=== PATIENT | male | born 1965 | race Caucasian/White ===

== ENCOUNTER 2021-01-10 01:59 | Outpatient (CLI) | payer OTHER, SELFPAY ==
[2021-01-10 10:17] LABS: Source Nasal/Nares
[2021-01-10 13:33] LABS: COVID-19 PCR Negative (Negative)
== END 2021-01-10 02:00 | disposition home or self-care (01) ==
LOC: LBO 01:59
PROVIDERS: PCP Internal Medicine; Visit Provider Surgery
DX: Z20.822 Contact with and (suspected) exposure to COVID-19 (principal); Z01.818 Encounter for other preprocedural examination
CPT/HCPCS: 87635

== ENCOUNTER 2021-01-13 08:14 | Day surgery (SDC) | payer OTHER, SELFPAY ==
--- NOTE | 2021-01-13 06:35 | COLE_ITS ---
Date of service: 01/13/21 Time of Service: 09:10 Colonoscopy Report Date of procedure: 01/13/21 Pre-op diagnosis general: Colon Cancer Screening and family history Post-op diagnosis procedure note: other (polyps) Procedure: Colonoscopy with polypectomy Surgeon: Molly Poole Anesthesia Type: General:No Airway (ASA 3/ Chay Helm CRNA) Estimated blood loss (mL): 3 Pathology: other (ascending colon and sigmoid colon polyps) Complications: None Disposition: same day Indications: The patient is here for Colonoscopy pre-op. His last screening was in 2009 and was unremarkable. He has a distant family history of colon cancer in his maternal grandmother and maternal aunt. He has not had any bowel habit changes. -Discussed colonoscopy bowel prep as well as the procedure. Discussed possible complications of the procedure to include bleeding, pain, perforation, missed small lesion/polyp, sore throat, aspiration and adverse reaction to the medications. Questions were answered to patient?s satisfaction. No guarantees we re implied or given. Prep: Miralax/Dulcolax Procedure Start Time: :10 Procedure End Time: :32 Retraction Time: 15 minutes Findings: 2 small sessile polyps Procedure Description: After informed consent was obtained the patient was taken to the procedure room and placed in a left decubitous position. Monitors were applied and a time out was done. The patients name, date of , procedure, allergies to medications and metal in their body was reviewed. The patient was then sedated. Once sedated and comfortable a rectal exam was done. External exam was normal. Internal exam revealed a normal sphincter tone and no palpable masses. The prostate felt smooth and normal in size. The scope was then introduced and retro-flexed. No internal hemorrhoids, polyps or masses were identified on retro-flexion. The scope was then advanced to the cecum without difficulty. The ileocecal vlave and appendiceal orifice were identified. The prep was good. The scope was then slowly retracted over 15 m inutes back into the rectum. Polyps were removed with cold forceps in the ascending colon and sigmoid colon. There was no diverticulosis noted. The scope was removed and the patient was woken up and taken back to Same day surgery in stable condition. The patient tolerated the procedure well and there were no immediate complications. Follow up: The patient should follow up in 5 years unless they develop changes in bowel habits or other new gastrointestinal complaints.
--- NOTE | 2021-01-13 06:37 | PDOC.DSDIS_ITS ---
Discharge Plan Disposition Patient Disposition: HOME Condition: Good Discharge Details Reason For Visit: Colon Cancer Screening Attending Provider: Molly Poole Primary Care Provider: Nadiya Zepeda Home Meds and New Rx's Prescriptions: Continued aspirin [Adult Aspirin Regimen] 81 mg tablet,delayed release (DR/EC) 81 mg PO DAILY RF: 0 lisinopril 5 mg tablet 5 mg PO DAILY RF: 0 therapeutic multivitamin Tablet 1 tab PO DAILY RF: 0 omega-3 fatty acids [Super [place]-3] 1,000 mg capsule 1,000 mg PO DAILY RF: 0 Discontinued bisacodyl [Dulcolax (bisacodyl)] 5 mg tablet,delayed release (DR/EC) 5 mg PO ONCE Qty: 4 RF: 0 polyethylene glycol 3350 17 gram/dose powder 238 g PO ONCE Qty: 238 RF: 0 Discharge Instructions Additional Instructions: Findings: polyps Follow up: 5 years most likely Please call if you develop: fevers >101.5 Nausea or Vomiting Abdominal pain that is not transient Rectal bleeding that is more then a tbsp A hard abdomen and inability to pass gas DAY SURGERY UNIT POST ENDOSCOPY INSTRUCTIONS Instructions for everyone who is given Anesthesia: For your safety, please do the following for the next 24 Hours: a. Do not drive or operate dangerous equipment b. Do not drink alcohol beverages or use any recreational drugs for the first 24 hours or while taking pain medications. The medications in your body may have a reaction that can be dangerous. c. Do not make any important decisions or sign any important papers 1. Generally there are no restrictions on your activity after a day or so has gone by, but you may feel a bit fatigued for a few days. 2. After you arrive home you may have a light meal and return to a normal diet as you can tolerate it without feeling sick to your stomach. 3. After surgery, you may feel pain or discomfort. This should be only transient, but if it persists please contact your doctor. 4. If there are any questions regarding the findings of your procedure, please feel free to contact your doctor. 6. If you are unable to contact your doctor with a problem, contact the hospital at [phone]. 7. Continue all your regular medications unless directed otherwise. I understand the above instructions and have no questions. Signature of Patient or Responsible Adult Escort Date/Time Name of Responsible Adult Escort Signature of Nurse Date/Time Activity:: Activity as Tolerated Diet:: As Tolerated Discharge Orders Discharge Orders: Discharge Order (Routine); Ordered 01/13/21 Ordered By: Molly Poole
[2021-01-13 08:36] VITALS: BP 141/101; PULSE 65; RESP 16; TEMP 36.3; O2SAT 98
[2021-01-13] MEDS: Lactated Ringers 1,000 ML 80 ML IV (08:51)
--- NOTE | 2021-01-13 08:57 | W.ANESPRE ---
General Info Date of Service Date Performed: 01/13/21 Height: 5 ft 6 in Weight: 84.3 kg Body Mass Index (BMI): 29.9 Surgical Procedure: Operation Date: 01/13/21 09:35 Proposed Procedures Side Surgeon p Colonoscopy Molly Poole MD Meds Allergies and Home Medications Allergies Allergy/AdvReac Type Severity Reaction Status Date / Time oxycodone AdvReac Intermediate Other (See Unverified 01/13/21 08:33 Comment) Home Medication Medication Instructions Recorded aspirin 81 mg tablet,delayed 81 mg PO DAILY 10/18/20 release lisinopril 5 mg tablet 5 mg PO DAILY 10/18/20 omega-3 fatty acids 1,000 mg 1,000 mg PO DAILY 10/18/20 capsule therapeutic multivitamin 1 tab PO DAILY 10/18/20 Current Visit Medications: Current Medications Generic Name Dose Route Start Last Admin Trade Name Freq PRN Reason Stop Dose Admin Hyoscyamine Sulfate 0.125 mg 01/13/21 06:38 Hyoscyamine 0.125 Mg Sl/Oral/Chew SL DIRECTED PRN Ringer's Solution 1,000 mls @ 80 mls/hr 01/13/21 06:00 01/13/21 08:51 IV 02/09/21 23:59 80 mls/hr INFUSION KJ Administration IV Miscellaneous Supplies 1 each 01/13/21 06:00 Iv Access IV 02/09/21 23:59 DIRECTED KJ Ondansetron HCl 4 mg 01/13/21 06:38 Ondansetron 4 Mg/2 Ml Vial IVP Q4H PRN PRN Nausea / Vomiting Sodium Chloride 0 ml 01/13/21 06:00 Normal Saline Flush 10 Ml Syr IV 02/09/21 23:59 PRN PRN Sodium Chloride 0 ml 01/13/21 06:00 Normal Saline 10 Ml Vial IJ 02/09/21 23:59 DIRECTED PRN Sterile Water 0 ml 01/13/21 06:00 Water,Injection,Sterile 10 Ml Vial IJ 02/09/21 23:59 DIRECTED PRN PFSH Active Problems Active Problems: Problem Status Onset Code Hypertension I10 Raynauds disease I73.00 Colon cancer screening Z12.11 Medical History Medical History CVA (cerebral vascular accident) 2016 Former smoker History of ankle fracture Tobacco Smoking/Tobacco Use Status: Former Tobacco Use Alcohol Alcohol Intake: never Substance Use Substance use type: does not use Vital Signs and Lab Results Vital Signs Most Recent Vital Signs in EMR: Most Recent Vital Signs Temp Pulse Resp BP Pulse Ox 36.3 C L 65 16 141/101 H 98 01/13/21 08:36 01/13/21 08:36 01/13/21 08:36 01/13/21 08:36 01/13/21 08:36 Lab Results Blood Type / Crossmatch: No Data to Display Complete Blood Count: No Data to Display Complete Metabolic Panel: No Data to Display Liver Function Panel: No Data to Display Coagulation Panel: No Data to Display Cardiac Panel: No Data to Display Arterial Blood Gas: No Data to Display Venous Blood Gas: No Data to Display Pancreas Panel: No Data to Display Thyroid Panel: No Data to Display Infectious Disease: Coronavirus (COVID-19)(PCR) Negative (Negative) 01/10/21 08:32 01/10/21 Coronavirus 2019 Source Nasal/nares 01/10/21 08:32 01/10/21 Blood Cultures: No Data to Display Toxicology Panel: No Data to Display Anesthesia Assessment and Plan Anesthesia History Personal History: No History of Anesthesia Complications Family History: No Family History of Anesthesia Complications Exercise Tolerance Exercise Tolerance: Metabolic Equivalents>4 Pertinent Negatives Pertinent Negatives: No Symptoms of GERD Cardiac & Pulmonary Exam Cardiac Exam: Normal S1/S2 Heart Sounds Pulmonary Exam: Clear Bilateral Breath Sounds Airway Exam Known Difficult Airway: No Mallampati Class: 2 Mouth Opening: Narrow (< 3cm) Thyromental Distance: Greater than 3 cm Neck Range of Motion: Full ROM Neck Circumference: Normal Teeth Condition: Normal Dentition ASA Classification ASA Score: ASA 3 ASA Emergency: No NPO Status NPO Status: NPO Clears >2 hours, Solids >8 hours Anesthesia Plan Anesthesia Technique: General Anesthesia Airway Planned: Natural Airway Monitors Used: Standard Monitors
[2021-01-13 09:01] VITALS: BMI 29.9
--- NOTE | 2021-01-13 09:39 | W.ANESPOSTOP ---
Postoperative Evaluation Date, Time and Location Date Performed: 01/13/21 Time Performed: 09:39 Patient Location: Day Surgery Unit Vital Signs Most Recent Imported Vital Signs: Most Recent Vital Signs Temp Pulse Resp BP Pulse Ox 36.3 C L 65 16 141/101 H 98 01/13/21 08:36 01/13/21 08:36 01/13/21 08:36 01/13/21 08:36 01/13/21 08:36 Most Recent Manually Entered Vital Signs: Adult Blood Pressure: 115/79 Heart Rate: 65 Respirations: 16 Oxygen Saturation (%): 95 Temperature (C): 36.2 C Pain Score (0-10 Scale): 0 Pain Score Most Recent Pain Score: Most Recent Pain Score Pain Level 0 01/13/21 08:36 Assessment Mental Status: Arousable with meaningful communication Airway and Respiratory Function: Patent airway with normal (patient baseline) respiratory exam Cardiovascular Function: Hemodynamically Stable Hydration Status: Adequately Hydrated Nausea & Vomiting: No Nausea or Vomiting Pain: Pt. Denies Any Pain Peripheral Nerve Block: Patient did not receive a nerve block
[2021-01-13 09:40] VITALS: BP 115/79; PULSE 65; PULSE 67; RESP 16; TEMP 36.2; TEMPC 36.2; O2SAT 94; O2SAT 95
--- NOTE | 2021-01-13 09:40 | BOWEL_PTH ---
PATIENT: Fredi Huff LOC: [facility] U#:[id number] AGE/SX: 55/M ROOM: RE01/13/[address]: Molly Poole MD : [id number] BED: DIS: 01/13/2021 SPEC #: [id number] RECD: 01/13/21 13:03 STATUS: CORINNANancy RE #: [id number] ELGIN: 01/13/21 09:[address]: Molly Poole DEPT: Surgical Specimen RECD BY: Emmy Cantor ENTERED: 01/13/21 13:04 SP TYPE: Bowel OTHR DR: Nadiya Zepeda Tissues: 1 - BIOPSY BOWEL 2 - BIOPSY BOWEL Procedures: GROSS AND MICRO LEVEL 4 Comments: [id number]
== END 2021-01-13 10:25 | disposition home or self-care (01) ==
PROVIDERS: PCP Internal Medicine; Visit Provider Surgery
PROC: 0DJD8ZZ Inspection of Lower Intestinal Tract, Via Natural or Artificial Opening Endoscopic (ICD-10-PCS; CPT 45378; principal; 2021-01-13 09:30)
DX: Z12.11 Encounter for screening for malignant neoplasm of colon (principal); K63.5 Polyp of colon; D12.2 Benign neoplasm of ascending colon; I10 Essential (primary) hypertension; Z80.0 Family history of malignant neoplasm of digestive organs; Z86.73 Personal history of transient ischemic attack (TIA), and cerebral infarction without residual deficits
CPT/HCPCS: 45380; 88305